=== PATIENT | female | born 1965 | race Caucasian/White ===

== ENCOUNTER 2020-03-29 17:39 | Emergency (ER) | payer BC ==
[2020-03-29] MEDS ORDERED: FAMOTIDINE INJ/PF 20 MG/2 ML SDV IV ONE (17:53)
[2020-03-29] MEDS ORDERED: DIPHENHYDRAMINE HCL 50 MG/ML VIAL IV ONE (17:53)
--- NOTE | 2020-03-29 17:56 | ER Document Report ---
ED Allergic Reaction - General Stated Complaint: ALLERGIC REACTION Time Seen by Provider: 03/29/20 17:45 Mode of Arrival: Medic Information source: Patient Notes: This 54-year-old woman presents to the emergency department with a history of a allergic reaction which began today suddenly while she was in her car. She states that she has had 2 prior episodes and had been given an EpiPen by her primary care doctor. She did see ENT no allergy testing was performed. She did have a sinus procedure performed as a attempt to correct what may be triggering her symptoms. She complains of difficulty swallowing swelling in her face and eyes along with a tightness in her throat. EMS has given her epinephrine, Solu- Medrol, she had taken 50 of Benadryl by mouth. Her symptoms are mildly re- improving however, she continues to have swelling and some difficulty with swallowing. Denies shortness of breath and her blood pressure has been stable. - Related Data Allergies/Adverse Reactions: Sulfa (Sulfonamide Antibiotics) Allergy (Verified 03/29/20 18:16) Past Medical History - General Information source: Patient - Social History Smoking Status: Unknown if Ever Smoked Family History: Reviewed & Not Pertinent Review of Systems - Review of Systems Notes: Constitutional: Negative for fever. HENT: + Facial swelling, + difficulty swallowing, + eye puffiness, throat tightness Eyes: Negative for visual changes. Cardiovascular: Negative for chest pain. Respiratory: Negative for shortness of breath. Gastrointestinal: Negative for abdominal pain, vomiting or diarrhea. Genitourinary: Negative for dysuria. Musculoskeletal: Negative for back pain. Skin: Negative for rash. Neurological: Negative for headaches, weakness or numbness. 10 point ROS negative except as marked above and in HPI. Physical Exam - Vital signs Vitals: Temp Pulse Resp BP Pulse Ox 98.1 F 98 14 140/97 H 95 03/29/20 17:40 03/29/20 17:40 03/29/20 17:40 03/29/20 17:40 03/29/20 17:40 - Notes Notes: PHYSICAL EXAMINATION: Physical Exam: General: Well-nourished well-developed in no acute distress HEENT: NC/AT, pupils equal round + bilateral chemosis, and reactive to light lower lid puffiness. Nasal congestion Neck: supple, no adenopathy, no masses. Good range of motion Lungs: clear, no wheezing, no rales no rhonchi CVS: Regular rate and rhythm no murmur gallop or rub Abdomen: Soft, active, nontender, no masses, no hepatosplenomegaly Ext: No edema, clubbing or cyanosis. Neuro: Alert and responsive, moving all 4 extremities on command, cranial nerves intact, no focal findings Skin: Intact no open lesions, no rash PSYCH: Normal mood, normal affect. Course - Re-evaluation Re-evalutation: 03/29/20 19:05 Patient is showing signs of improvement she is given Pepcid 40 mg IV, Benadryl 25 mg IV with continued improvement. She has an antihistamine eyedrop that she had been prescribed by her doctor. She is using those drops for the chemosis. She has improved significantly and we will be discharging her home. I have suggested that she begin Zyrtec, Pepcid and she has been given a prescription for prednisone and an EpiPen. Encouraged her also to follow-up with her primary care doctor as needed. Patient and her were attentive and are in agreement with this plan. - Vital Signs Vital signs: Temp Pulse Resp BP Pulse Ox 98.1 F 98 14 140/97 H 95 03/29/20 17:40 03/29/20 17:40 03/29/20 17:40 03/29/20 17:40 03/29/20 17:40 Discharge - Discharge Clinical Impression: Allergic reaction Qualifiers: Encounter type: initial encounter Qualified Code(s): T78.40XA - Allergy, unspecified, initial encounter Angioedema Qualifiers: Encounter type: initial encounter Qualified Code(s): T78.3XXA - Angioneurotic edema, initial encounter Condition: Good Disposition: HOME, SELF-CARE Instructions: Acute Allergic Reaction ([facility]) Additional Instructions: You are seen in the emergency department tonight with a sudden allergic reaction. You are being discharged home with instructions to begin Zyrtec and Pepcid daily. You also given a prescription for prednisone and an EpiPen. Please use those medications as prescribed. Follow-up with your primary care doctor as needed Return to the emergency department if you are having new or worsening symptoms or if you have other concerns. HOME CARE INSTRUCTIONS & INFORMATION: Thank you for choosing us for your medical needs. We hope you're satisfied with the care you received. After you leave, you must properly care for your problem and, at the same time, observe its progress. Any condition can change. Some illnesses can change rapidly over hours or days. If your condition worsens, return to the Emergency Department or see your physician promptly. ABOUT YOUR X-RAYS AND EKG'S: If you had an EKG or X-rays taken, they have been read by the Emergency Physician. The X-rays and EKG's will also be read by a Radiologist or Furnace Setter within 24 hours. If discrepancies are noted, you will be notified by telephone. Please be certain the ED has a correct telephone number & address where you can be reached. Also, realize that some fractures or abnormalities do not show up on initial X-rays. If your symptoms continue, see your physician. ABOUT YOUR LABORATORY TEST: If you had laboratory tests, the results have been reviewed by the Emergency Physician. Some test results (for example cultures) may not be available for several days. You will be contacted if any test result shows you need additional treatment. Please be certain the ED has a correct telephone number and address where you can be reached. ABOUT YOUR MEDICATIONS: You will receive instructions on how to take your medicine on the prescription label you receive. Additional information may be provided by the Pharmacy. If you have questions afterwards, call the ED for clarification or further instructions. Some prescribed medications may cause drowsiness. Do not perform tasks such as driving a car or operating machinery without consulting your Pharmacist. If you feel you need a refill of pain medication, your condition will need re-evaluation. Please do not call for a refill of any medication. ABOUT YOUR SIGNATURE: Signature of this document acknowledges to followin. Understanding that you received emergency treatment and that you may be released before al medical problems are known or treated. Please be certain the ED has a correct phone number & address where you can be reached. 2. Acknowledgement that you will arrange for follow-up care as recommended. 3. Authorization for the Emergency Physician to provide information to your follow-up Physician in order to maximize your care. AT ANY TIME, IF YOUR SYMPTOMS CHANGE SIGNIFICANTLY OR WORSEN OR YOU DEVELOP NEW SYMPTOMS, RETURN TO THE EMERGENCY DEPARTMENT IMMEDIATELY FOR RE-EVALUATION. OUR GOAL IS TO PROVIDE EXCELLENT MEDICAL CARE! WE HOPE THAT WE HAVE MET YOUR EXPECTATIONS DURING YOUR EMERGENCY DEPARTMENT VISIT AND THAT YOU FEEL YOU HAVE RECEIVED EXCELLENT CARE! Prescriptions: Prednisone [Deltasone 20 mg Tablet] 1 tab PO BID 5 Days #10 tablet Epinephrine [Epipen 2-Jake] 0.3 mg IM ONCE PRN #1 packet PRN Reason:
[2020-03-29 19:39] VITALS: BP 116/72
== END 2020-03-29 19:40 | disposition home or self-care (01) ==
LOC: ER 17:39
DX: T78.3XXA Angioneurotic edema, initial encounter (principal); Y92.810 Car as the place of occurrence of the external cause; Z88.2 Allergy status to sulfonamides
CPT/HCPCS: 99284; 96374; 96375; J1200; S0028